=== PATIENT | female | born 1960 | race Caucasian/White ===

== ENCOUNTER 2017-06-01 15:25 | Outpatient (CLI) | payer OTHER ==
[~2017-06-01] VITALS: Ht 171.4 cm; Wt 62.7 kg
[2017-06-01] MEDS ORDERED: DILT120C77 PO (15:37)
[2017-06-01 15:39] VITALS: BP 133/64; PULSE 68; RESP 16; Ht 171.4 cm; Wt 62.7 kg
[2017-06-01] MEDS ORDERED: DRON400T2 PO (15:41)
--- NOTE | 2017-06-01 16:37 | PN ---
Date/Time of Note Date/Time of Note DATE: 06/01/17 TIME: 16:31 Assessment/Plan Assessment/Plan Assessment/Plan [facility] Progress Note Date of Service: 06/01/17 Today's Impression & Plan: Looks and feels great. Abdomen remains benign. No evidence for major post operative complication or wound problems. Explained to the patient and answered all questions. Patient appeared to understand and agreed with plans. With above assessments, I recommended the followin. Establish a relationship and f/u with pcp 2. F/u with us prn Thank you very much for allowing us to participate in the care of this very nice patient and wonderful family. If there are any questions, please feel free to contact me at . Please note: Spelling or grammatical errors in this note are likely due to EHR/ dictation systems and are not reflective of patient care quality. Also please note that the dictation timestamp of this note does not necessarily reflected time of the visit for this service. Updated Clinical Summary: A very pleasant 56-year-old lady with a few comorbidities presenting with a clinical picture that is somewhat concerning for closed loop syndrome with bowel obstruction and increased lactic acid concerning for bowel ischemia. S/p an otherwise uncomplicated laparoscopic exploration with lysis of adhesions and reversal of small bowel volvulus through the internal ring from adhesions at [facility] on 04/29/17 with compromised but rapidly improved small intestine within the ileum. D/c home without complication on 05/01/17. Comorbidities: 1. 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 S/p an otherwise uncomplicated laparoscopic exploration with lysis of adhesions and reversal of small bowel volvulus through the internal ring from adhesions at [facility] on 04/29/17 with compromised but rapidly improved small intestine within the ileum. 2. Status post March 1992 with baby girl born 3. 001 4. Status post LEEP for MERLE-1 2005, follow-up normal Pap smear neck sign 4. History of D&C for abnormal bleeding 5. Endometrial polyps 1998 6. [facility] [place] D&C 2007 for endometrial thickening, pathology benign 7. [facility] D&C 2011 8. Status post endometrial biopsy 03/08/2017 Dr. Aguirre [facility]; disordered proliferative endometrium with focus of crowding of glands; follow-up with repeat biopsy was recommended to rule out endometrial hyperplasia 9. Uterine fibroids next line 10. Small cyst on left ovary 10. Sleep apnea 11. Thumb surgery 02/25/2017 12. [place] teeth surgery 13. Atrial fibrillation Subjective: No major events or complaints since d/c. No major pain complaints and not on pain medications. No N/V, SOB or CP. + bowel activity Objective: Vitals: reviewed; please also see EHR Physical Exam: Lungs: breathing comfortably without tachypnea; no audible wheezes, rales or rhonchi on gross exam Abd: Soft, non-tender, and non-distended; no peritoneal signs or guarding. Incisions clean, dry, and intact without any obvious evidence of erythema, edema , discharge, or hernia. Skin: Appears pink and feels warm to touch. Neuro: Awake, alert and follows commands appropriately Exam/Review of Systems Vital Signs Vitals Vital Signs Date Time Temp Pulse Resp B/P Pulse Ox O2 Delivery O2 Flow Rate FiO2 06/01/17 15:39 98.1 68 16 133/64 97 Room Air SHREYA FIGUEROA M.D. Jun 01, 2017 16:37
== END 2017-06-01 17:00 | disposition home or self-care (01) ==
LOC: HPC 15:25
PROVIDERS: ATTEND Transplant Surgery
DX: Z09 Encounter for follow-up examination after completed treatment for conditions other than malignant neoplasm (principal); K90.2 Blind loop syndrome, not elsewhere classified; I48.91 Unspecified atrial fibrillation; G47.30 Sleep apnea, unspecified
CPT/HCPCS: G0463